=== PATIENT | female | born 1970 | race Hispanic/Latino ===

== ENCOUNTER → 2025-01-15 | Day surgery (SDC) | payer BC ==
[~2025-01-15] MED LIST: LEVOTHYROXINE50 MCG PO; LIDOCAINE HCL 2% LOCAL INJ 5 ML SDV VIAL INJ ONE; MIDAZOLAM HCL 2 MG/2 ML VIAL ONE; PROPOFOL IV EMULSION 10 MG/ML 20 ML VIAL ONE
[2025-01-15 09:32] VITALS: TEMP 98
[2025-01-15 09:55] VITALS: BP 122/82; PULSE 80; RESP 16; O2SAT 96
[2025-01-15] MEDS: LACTATED RINGER'S 1,000 ML ONE (12:47)
== END | disposition home or self-care (01) ==
LOC: OR 07:03 → EDSTATUS 08:30
PROVIDERS: ATTEND Internal Medicine Gastroenterology
DX: Z12.11 Encounter for screening for malignant neoplasm of colon (principal); K63.5 Polyp of colon; K57.30 Diverticulosis of large intestine without perforation or abscess without bleeding; K64.8 Other hemorrhoids; Z01.810 Encounter for preprocedural cardiovascular examination; E03.9 Hypothyroidism, unspecified; Z79.890 Hormone replacement therapy
CPT/HCPCS: 45384; 93005; J2003; J2250; J2704; J7121